=== PATIENT | male | born 1950 | race Caucasian/White ===

== ENCOUNTER 2025-01-25 14:29 | Emergency (ER) | payer MEDICARE ==
[2025-01-25] MEDS ORDERED: Lidocaine 1% w/Epinephrine 1:100K 20 ML VIAL ONE (14:57)
== END 2025-01-25 16:09 | disposition home or self-care (01) ==
LOC: NAV ERS 14:29
DX: S81.011A Laceration without foreign body, right knee, initial encounter (principal); I10 Essential (primary) hypertension; Z23 Encounter for immunization; W29.3XXA Contact with powered garden and outdoor hand tools and machinery, initial encounter
CPT/HCPCS: 12032; 90471; 90715